=== PATIENT | male | born 1965 | race Caucasian/White ===

== ENCOUNTER 2018-07-01 12:59 | Outpatient (CLI) | payer OTHER ==
--- NOTE | 2018-07-01 14:08 | RAD ---
CHEST 2 VIEWS: HISTORY: History of colon cancer, wheezing, cough for 2 weeks getting worse. FINDINGS: Heart size is within normal limits. There are increased linear and interstitial parenchymal changes in the perihilar regions bilaterally, nonspecific. There is no significant confluent lobar pneumonia . Heart size is normal. Biapical pleural thickening. No pleural effusion. IMPRESSION: Nonspecific increased linear and interstitial markings in the right and left perihilar regions. Biap ical pleural thickening. No old studies. Depending on concern, a short-term followup study might be of benefit. POS: [facility]
== END 2018-07-01 13:00 | disposition home or self-care (01) ==
LOC: BICRAD 12:59
PROVIDERS: ATTEND Physician Assistant Medical
DX: Z12.11 Encounter for screening for malignant neoplasm of colon (principal); R05 Cough; K21.9 Gastro-esophageal reflux disease without esophagitis
CPT/HCPCS: 71046

== ENCOUNTER 2018-09-22 12:15 | Outpatient (CLI) | payer OTHER ==
--- NOTE | 2018-09-22 13:03 | RAD ---
2 views chest: 09/22/2018 COMPARISON: 07/01/2018 HISTORY: Chest pressure History of colon cancer FINDINGS: Mild increased linear density in the perihilar regions noted, stable. No pneumothorax, pleu ral fluid, focal consolidation, or alveolar edema. Heart and mediastinal contours are stable. Stable midthoracic spine degenerative change. IMPRESSION: No acute findings.
== END 2018-09-22 12:16 | disposition home or self-care (01) ==
LOC: BICRAD 12:15
DX: J98.4 Other disorders of lung (principal)
CPT/HCPCS: 71046

== ENCOUNTER 2019-11-13 11:10 | Outpatient (CLI) | payer OTHER ==
[2019-11-13] MEDS ORDERED: Heparin 5,000 UNITS/ML VIAL ONE (12:31)
--- NOTE | 2019-11-13 13:53 | MRI ---
MR of the abdomen with and without contrast utilizing a MR enterography protocol INDICATION: History of acute gastrointestinal hemorrhage COMPARISON: CT abdomen and pelvis dated October 11, 2012 and abdominal bleeding nuclear medicine scan flaco ed October 13, 2019 medical evaluation from October 16, 2019 was also reviewed. Contrast: 20 cc of MultiHance FINDINGS: There are loops of jejunum that are poorly distended; however, majority of the small bowel is appropriately distended. No visible mucosal abnormality or mass is identified. There are numerous scattered diverticula involving the colon, most severely affecting the sigmoid colon. There are scattered diverticula involving the ascending colon. There is a normal appendix in the right lower quadrant. There is a 1.9 x 2.5 x 3 cm soft tissue nodule within the right lower quadrant mesent mariano image 31 of series 5 and image 26 of series 10. Findings are suspicious for an enlarged lymph node in the right lower quadrant of the abdomen. A few shotty appearing lymph nodes are seen within t he right lower quadrant mesentery. Particularly on image 36 of series 10. There is a gallstone within the gallbladder neck. No intrahepatic biliary duct dilatation is noted. The common bile duct i s normal caliber. The main pancreatic duct is of normal caliber. The pancreas, adrenal glands and spleen appear within normal limits. No focal renal lesion is evident. No bone marrow signal abnormali ty is noted. IMPRESSION: 1. Colonic diverticulosis. No suspicious small bowel lesion identified. The acute hemorrhage seen on the comparison nuclear medicine bleeding scan dated October 13, 2019 potentially could have come from a diverticular bleed of the right hemicolon. 2. Nonspecific enlarged lymph node of the right lower quadrant mesentery. As a conservative measure a CT follow-up in 4-6 weeks is recommended to document stability versus resolution. A few other shotty appearing lymph nodes are seen within the right lower quadrant mesentery. This is larger than expected for a reactive lymph node. 3. Cholelithiasis
[2019-11-13] MEDS ORDERED: Magnevist 469MG/ML 20 ML VIAL ONE (14:04)
== END 2019-11-13 11:11 | disposition home or self-care (01) ==
LOC: MRI 11:10
PROVIDERS: ATTEND Internal Medicine Gastroenterology
DX: K57.31 Diverticulosis of large intestine without perforation or abscess with bleeding (principal); R59.0 Localized enlarged lymph nodes; K80.20 Calculus of gallbladder without cholecystitis without obstruction
CPT/HCPCS: 74183; A9579; J1644

== ENCOUNTER 2019-11-23 15:44 | Outpatient (CLI) | payer OTHER ==
--- NOTE | 2019-11-23 17:09 | RAD ---
EXAM: SI JOINTS THREE VIEWS: 11/23/19 HISTORY: Sacroiliitis, left sided pain, greater than right. FINDINGS: There is some very slight sclerosis of both SI joints. No evidence for ankylosis. No evidence for per iarticular bony erosive destructive change. IMPRESSION: Very slight bilateral SI joint sclerosis but no definitive ankylosis or periarticular bony erosive or destructive change POS: [facility]
== END 2019-11-23 15:45 | disposition home or self-care (01) ==
LOC: BICRAD 15:44
PROVIDERS: ATTEND Internal Medicine Rheumatology
DX: M46.1 Sacroiliitis, not elsewhere classified (principal); M53.3 Sacrococcygeal disorders, not elsewhere classified
CPT/HCPCS: 72202